=== PATIENT | female | born 1990 | race Two or more races ===

== ENCOUNTER 2022-06-26 03:04 | Emergency (ER) | payer OTHER ==
[~2022-06-26] VITALS: Ht 160 cm; Wt 67.6 kg
--- NOTE | 2022-06-26 03:10 | NUR ---
[id number] FROM HOME C/O EPIGASTRIC PAIN STARTED AT 2AM. PATIENT IS AAOX4. ABLE TO MAKE NEEDS KNOWN. PAIN SCALE OF 10/10. ATTACHED TO MONITOR. CHANGED TO PT'S GOWN. VITALS CHECKED
--- NOTE | 2022-06-26 03:16 | NUR ---
SEEN BY DR KENNEDY AT BEDSIDE.
[2022-06-26] MEDS ORDERED: KETOROLAC TROMETHAMINE INJ 30 MG/ML VIAL IV ONE (03:30)
[2022-06-26] MEDS ORDERED: KETOROLAC TROMETHAMINE 15 MG/ML VIAL ONE (03:32)
--- NOTE | 2022-06-26 03:45 | NUR ---
NORM VELAZCO AT BEDSIDE.
--- NOTE | 2022-06-26 04:05 | NUR ---
URINE SPECIMEN SENT TO LAB
[2022-06-26 04:12] LABS: BASOPHILS # (AUTO) 0.1 K/uL (0.0-0.2); BASOPHILS % (AUTO) 0.5 % (0.0-2.0); EOSINOPHILS % (AUTO) 0.5 % (0.0-6.0); HEMATOCRIT 39 % (33-45); HEMOGLOBIN 12.8 g/dL (11.5-14.8); LYMPHOCYTES # (AUTO) 1.6 K/uL (0.8-4.8); LYMPHOCYTES % (AUTO) 12.3 % (20.0-44.0); MEAN CORPUSCULAR HGB CONC 33 g/dl (31.0-36.0); MEAN CORPUSCULAR VOLUME 92 fL (82-100); MONOCYTES # (AUTO) 0.2 K/uL (0.1-1.30); MONOCYTES % (AUTO) 1.7 % (2.0-12.0); NEUTROPHILS # (AUTO) 10.9 K/uL (1.8-8.9); PLATELET COUNT (AUTO) 236 K/uL (150-450); RED BLOOD CELL COUNT(AUTO) 4.19 MIL/uL (4.0-5.2); WHITE BLOOD COUNT (AUTO) 12.8 K/uL (4.3-11.0)
--- NOTE | 2022-06-26 04:16 | NUR ---
BROUGHT TO CT DEPT
--- NOTE | 2022-06-26 04:16 | NUR ---
SIGNED DISCLAIMER THAT SHE IS NOT
[2022-06-26 04:22] LABS: BILIRUBIN,URINE NEGATIVE (NEGATIVE); COLOR,URINE YELLOW (YELLOW); LEUKOCYTE ESTERASE ,URINE NEGATIVE (NEGATIVE); NITRITE, URINE NEGATIVE (NEGATIVE); PH,URINE 5.5 (5.0-8.0); PROTEIN,URINE NEGATIVE (NEGATIVE); UGLUCOSE NEGATIVE (NEGATIVE); UROBILINOGEN,URINE 0.2 EU/dL (0.2)
[2022-06-26 04:29] LABS: CALCIUM, SERUM 8.1 mg/dL (8.5-10.1); CARBON DIOXIDE 29 mmol/L (21-32); CHLORIDE 107 mmol/L (98-107); CREATININE 0.8 mg/dL (0.6-1.3); GLUCOSE 108 mg/dL (74-106); POTASSIUM 3.3 mmol/L (3.5-5.1); SODIUM SERUM 140 mmol/L (136-145); UREA NITROGEN, BLOOD 16 mg/dL (7-18)
[2022-06-26 04:34] LABS: ALANINE AMINOTRANSFERASE 19 U/L (12-78); ALBUMIN 3.1 g/dL (3.4-5.0); ALKALINE PHOSPHATASE 96 U/L (46-116); ASPARTATE AMINOTRANSFERASE 17 U/L (15-37); BILIRUBIN,DIRECT 0.2 mg/dL (0.0-0.2); BILIRUBIN,TOTAL 0.7 mg/dL (0.2-1.0); LIPASE 70 U/L (73-393); TOTAL PROTEIN, SERUM 6.5 g/dL (6.4-8.2)
[2022-06-26] MEDS ORDERED: LIDOCAINE VISCOUS 2% UD 15 ML UDC ONE (04:58)
[2022-06-26] MEDS ORDERED: MAG HYDROX/AL HYDROX/SIMETH 30 ML UDC ONE (04:58)
[2022-06-26] MEDS ORDERED: LIDOCAINE VISCOUS 2% UD 15 ML UDC MM ONE (05:00)
[2022-06-26] MEDS ORDERED: MAG HYDROX/AL HYDROX/SIMETH 30 ML UDC PO ONE (05:00)
[2022-06-26] MEDS ORDERED: PANT40TA2 PO (05:14)
--- NOTE | 2022-06-26 05:54 | NUR ---
Patient discharged to home in stable condition. Written and verbal after care instructions given. Patient verbalizes understanding of instruction.
--- NOTE | 2022-06-26 05:54 | NUR ---
IV CANNULA REMOVED
[2022-06-26 05:55] VITALS: BP 103/73
== END 2022-06-26 05:55 | disposition home or self-care (01) ==
LOC: ER 03:10
DX: R10.9 Unspecified abdominal pain (principal); I10 Essential (primary) hypertension; Z60.2 Problems related to living alone; Z79.899 Other long term (current) drug therapy
CPT/HCPCS: 99285; 74176; 96374; 76705; 93005; 85025; 80048; 83690; 80076; 84703; 81003; 36415; 84484; 85730; J1885